=== PATIENT | female | born 1995 | race Caucasian/White ===

== ENCOUNTER 2019-04-27 19:11 | Emergency (ER) | payer OTHER ==
[~2019-04-27] VITALS: Ht 170.2 cm; Wt 107.7 kg
[2019-04-27 19:13] VITALS: Ht 170.2 cm; Wt 107.7 kg
[2019-04-27] MEDS ORDERED: CEPH-443 PO (21:36)
[2019-04-27] MEDS ORDERED: NAPR-985 PO (21:36)
[2019-04-27 21:54] VITALS: BP 128/70; PULSE 82; RESP 17
--- NOTE | 2019-04-28 00:23 | ERD ---
ER Documentation Chief Complaint Chief Complaint VBPG X'S 1 DAY, UNSURE OF GESTATIONAL STAGE HPI 24-year-old female presented to the emergency department complaining of intermittent vaginal bleeding for the past 1 day. She states she had 3+ test at home. Last menstrual cycle was reportedly 03/20/2019. This would be her first . She used 5 pads throughout the day today. She also reports some suprapubic cramping. She denies any other symptoms currently. Symptoms are mild in severity. ROS All systems reviewed and are negative except as per history of present illness. Medications Home Meds Active Scripts Cephalexin* (Keflex*) 500 Mg Capsule, 500 MG PO QID for 5 Days, CAP Prov:KVNG GONZALEZ PA-C 04/27/19 Naproxen* (Naprosyn*) 500 Mg Tablet, 500 MG PO BID PRN for PAIN AND/OR INFLAMMATION, #30 TAB Prov:KVNG GONZALEZ PA-C 04/27/19 Allergies Allergies: Coded Allergies: No Known Allergy (Unverified , 04/27/19) PMhx/Soc Medical and Surgical Hx: pt denies Medical Hx, pt denies Surgical Hx Hx Alcohol Use: Yes (occasional) Hx Substance Use: Yes (marijuana) Hx Tobacco Use: No Smoking Status: Never smoker FmHx Family History: No diabetes Physical Exam Vitals Vital Signs Date Temp Pulse Resp B/P (MAP) Pulse Ox O2 O2 Flow FiO2 Time Delivery Rate 04/27/19 98.4 82 17 128/70 98 Room Air 21:54 (89) 04/27/19 98.6 88 18 137/66 100 19:13 (89) Physical Exam Const: No acute distress Head: Atraumatic Eyes: Normal Conjunctiva ENT: Normal External Ears, Nose and Mouth. Neck: Full range of motion. No meningismus. Resp: Clear to auscultation bilaterally Cardio: Regular rate and rhythm, no murmurs Abd: Soft, non tender, non distended. Normal bowel sounds. No McBurney's point tenderness. No rebound tenderness or guarding. Mild suprapubic te nderness to palpation. Skin: No petechiae or rashes Back: No midline or flank tenderness Ext: No cyanosis, or edema Neur: Awake and alert Psych: Normal Mood and Affect Result Diagram: 04/27/191954 Results 24 hrs Laboratory Tests Test 04/27/19 19:55 White Blood Count 9.5 10^3/ul Red Blood Count 4.60 10^6/ul Hemoglobin 12.1 g/dl Hematocrit 37.9 % Mean Corpuscular Volume 82.4 fl Mean Corpuscular Hemoglobin 26.3 pg Mean Corpuscular Hemoglobin Concent 31.9 g/dl Red Cell Distribution Width 14.2 % Platelet Count 300 10^3/UL Mean Platelet Volume 10.3 fl Immature Granulocytes % 0.200 % Neutrophils % 69.5 % Lymphocytes % 18.7 % Monocytes % 8.5 % Eosinophils % 2.4 % Basophils % 0.7 % Nucleated Red Blood Cells % 0.0 /100WBC Immature Granulocytes # 0.020 10^3/ul Neutrophils # 6.6 10^3/ul Lymphocytes # 1.8 10^3/ul Monocytes # 0.8 10^3/ul Eosinophils # 0.2 10^3/ul Basophils # 0.1 10^3/ul Nucleated Red Blood Cells # 0.0 10^3/ul Urine Color YELLOW Urine Clarity SLIGHTLY CLOUDY Urine pH 5.0 Urine Specific [place] 1.024 Urine Ketones NEGATIVE mg/dL Urine Nitrite NEGATIVE mg/dL Urine Bilirubin NEGATIVE mg/dL Urine Urobilinogen NEGATIVE mg/dL Urine Leukocyte Esterase TRACE Abdi/ul Urine Microscopic RBC > 182 /HPF Urine Microscopic WBC 20 /HPF Urine Squamous Epithelial Cells MODERATE /HPF Urine Bacteria FEW /HPF Urine Mucus FEW /HPF Urine Hemoglobin 3+ mg/dL Urine Glucose NEGATIVE mg/dL Urine Total Protein 1+ mg/dl Beta HCG, Quantitative < 2.4 mIU/ml [place] [address] Radiology Main Line: [phone] DIAGNOSTIC IMAGING REPORT Patient: ROSALINA HOWE : 1995 Age: 24 Sex: F MR #: [id number] DOS: 04/27/191946 Ordering MD: KVNG GONZALEZ PA-C Location: [facility] Room/Bed: PROCEDURE: US OB. CLINICAL INDICATION: Positive , vaginal bleeding TECHNIQUE: Transabdominal and transvaginal views of the pelvis are available for review. COMPARISON: No prior studies are available for comparison. FINDINGS: Uterus: Normal; 7.5 x 4.7 x 3.9 cm. There is no evidence of myometrial mass. A benign appearing linear calcification within the posterior cervix is believed to be of doubtful clinical significance measuring 4.8 mm Endometrial cavity: No intrauterine is identified, the thickness is normal measuring 10 mm. No hypervascular blood flow seen on Doppler interrogation Right ovary / adnexa: Ovarian size is normal measuring 3.7 x 2.6 x 2.1 cm and there is no evidence of adnexal mass. Normal blood flow on Doppler interrogation is present. Left ovary/adnexa: Ovarian size is normal measuring 2.8 x 2.4 x 1.6 cm with no evidence of ovarian or adnexal mass. Normal blood flow seen on Doppler interrogation. Cul-de-sac: A small amount of free fluid is identified possibly physiologic. RPTAT:HJJR IMPRESSION: No intrauterine identified. Ectopic is not excluded, but there are no suspicious findings at this time. Correlation with serial beta HCGs is suggested with followup as clinically indicated. Physician Kaleb Date Time Electronically viewed and signed by Physician Kaleb on 04/27/2019 21:21 JR/ CC: KVNG GONZALEZ PA-C [id number] Procedures/MDM 24-year-old female presents the emergency department complaining of vaginal bleeding. She states she had 3 at home positive test. Beta hCG here was less than 2.4. Urinalysis is concerning for mild UTI. Low suspicion for pyelonephritis. CBC showed no evidence of significant leukocytosis or anemia. Ultrasound showed no intrauterine . The full radiology report interpreted by the radiologist may be viewed above. Differentials include missed or heavy menstrual bleeding. I doubt ectopic . I doubt tubo-ovarian abscess, PID, ovarian torsion, or other emergencies. Patient is stable for discharge and further outpatient management with prescription for Keflex to treat urinary tract infection. she will be given prescription for naproxen for pain. She was advised to have 24 to 48-hour follow-up with her primary care physician and [employer] physician and return here immediately for any new or worsening or concerning symptoms. Shared my medical decision making with the patient and she understands and agrees with the plan. Departure Diagnosis: Primary Impression: UTI (urinary tract infection) Additional Impression: Vaginal bleeding Condition: Fair Patient Instructions: Understanding Urinary Tract Infections (UTIs) Referrals: [facility] YOU HAVE RECEIVED A MEDICAL SCREENING EXAM AND THE RESULTS INDICATE THAT YOU DO NOT HAVE A CONDITION THAT REQUIRES URGENT TREATMENT IN THE EMERGENCY DEPARTMENT. FURTHER EVALUATION AND TREATMENT OF YOUR CONDITION CAN WAIT UNTIL YOU ARE SEEN IN YOUR DOCTORS OFFICE WITHIN THE NEXT 1-2 DAYS. IT IS YOUR RESPONSIBILITY TO MAKE AN APPOINTMENT FOR FOLOW-UP CARE. IF YOU HAVE A PRIMARY DOCTOR --you should call your primary doctor and schedule an appointment IF YOU DO NOT HAVE A PRIMARY DOCTOR YOU CAN CALL OUR PHYSICIAN REFERRAL HOTLINE AT IF YOU CAN NOT AFFORD TO SEE A PHYSICIAN YOU CAN CHOSE FROM THE FOLLOWING [facility] [address] [facility]. [facility] [address] [facility] [address] [facility]. [facility] [address] [facility]. [facility] [phone] [facility]. [facility]. [address] [employer] [place] [address] [facility] [address] [place], [place] [phone] OFFICE FAX DORA JANSEN [address] [place], [place] [phone] [address] B[address] [address] [place], [place] [phone] KATERIN DONOVAN [address] [facility], [address] [address] [address]ANOZ [address] [facility] [place], [place] [phone] [facility] [address] [place], [place] [address] [address] [facility] [id number] - EFRA[address]N RODRIGUES [address], [facility] [address] [address], [place] [address] [facility]. [address], [facility] [address] [address] [facility] [address] [place], [place] [phone] Additional Instructions: SPECIALIST: YOU HAVE A MEDICAL CONDITION WHICH REQUIRES YOU TO SEE A SPECIALIST WITHIN THE NEXT 1-2 DAYS. PLEASE FOLLOW UP WITH YOUR PRIMARY PHYSICIAN FOR REFFERAL.IF YOU DO NOT HAVE A PRIMARY CARE PHYSICIAN AND/OR YOU CAN NOT AFFORD TO SEE A PHYSICIAN THE FOLLOWING RESOURCES HAVE BEEN SUPPLIED TO YOU. IT IS YOUR RESPONSIBILITY TO BE SEEN BY THE SPECIALIST: KVNG BROTHERS PA-C Apr 28, 2019 00:23
== END 2019-04-27 21:54 | disposition home or self-care (01) ==
LOC: FTE 19:11
DX: N39.0 Urinary tract infection, site not specified (principal)
CPT/HCPCS: 36415; 76801; 76817; 81001; 84702; 85025; 86900; 86901